=== PATIENT | female | born 1985 | race Two or more races ===

== ENCOUNTER → 2022-11-28 | Outpatient (CLI) | payer OTHER ==
[2022-11-28 14:09] LABS: HEMATOCRIT 33.1 % (36.0-47.0); HEMOGLOBIN 10.7 g/dl (12.0-15.5); MEAN CORPUSCULAR HEMOGLOBIN 30.5 pg (27.0-33.0); MEAN CORPUSCULAR HGB CONC 32.3 g/dl (32.0-36.5); MEAN CORPUSCULAR VOLUME 94.3 fl (80.0-96.0); PLATELET COUNT, AUTOMATED 289 10^3/uL (150-450); RED BLOOD COUNT 3.51 10^6/uL (4.00-5.40); WHITE BLOOD COUNT 8.4 10^3/uL (4.0-10.0)
[2022-11-28 15:08] LABS: HIV 1&2 SCREEN CENTAUR NEGATIVE (NEGATIVE)
[2022-11-28 15:18] LABS: HEPATITIS C VIRUS ABY INDEX < 0.0 INDEX (<0.8)
[2022-11-29 16:10] LABS: GC DNA AMPLIFICATION NEGATIVE (NEGATIVE)
== END ==
LOC: M PLALAB 09:21
PROVIDERS: ATTEND Obstetrics & Gynecology
DX: Z34.81 Encounter for supervision of other normal pregnancy, first trimester (principal)

== ENCOUNTER 2022-12-26 10:19 | Outpatient (CLI) | payer OTHER ==
[~2022-12-26] VITALS: Ht 162.6 cm; Wt 67.0 kg
[2022-12-26] MEDS ORDERED: PRENTAB9 PO (10:44)
[2022-12-26 10:47] VITALS: BP 104/65
[2022-12-26] MEDS ORDERED: BETAMETHASONE SOLUSPAN 6MG/ML 5ML VIAL IM STA (11:11)
[2022-12-26] MEDS ORDERED: HOME MED LIST COMPLETE! XX SCH (12:30)
== END 2022-12-26 12:23 | disposition home or self-care (01) ==
LOC: M LDO 10:19
PROVIDERS: ATTEND Obstetrics & Gynecology
DX: O26.872 Cervical shortening, second trimester (principal); O26.892 Other specified pregnancy related conditions, second trimester; R10.2 Pelvic and perineal pain; O09.522 Supervision of elderly multigravida, second trimester; Z3A.26 26 weeks gestation of pregnancy
CPT/HCPCS: 59025; 87081; G0463; J0702

== ENCOUNTER → 2022-12-26 | Outpatient (CLI) | payer OTHER ==
[~2022-12-26] MED LIST: PRENTAB9 PO
== END ==
LOC: M WHC 08:05
PROVIDERS: ATTEND Obstetrics & Gynecology
DX: Z34.92 Encounter for supervision of normal pregnancy, unspecified, second trimester (principal)

== ENCOUNTER 2022-12-27 10:55 | Outpatient (CLI) | payer OTHER ==
[~2022-12-27] VITALS: Ht 162.6 cm; Wt 66.7 kg
[2022-12-27] MEDS ORDERED: BETAMETHASONE SOLUSPAN 6MG/ML 5ML VIAL IM ONE (11:25)
== END 2022-12-27 11:30 | disposition home or self-care (01) ==
LOC: M LDO 10:55
PROVIDERS: ATTEND Advanced Practice Midwife
DX: O26.872 Cervical shortening, second trimester (principal); O09.522 Supervision of elderly multigravida, second trimester; Z3A.26 26 weeks gestation of pregnancy

== ENCOUNTER → 2023-01-16 | Outpatient (CLI) | payer OTHER | LOC: M PLALAB 13:12 | PROVIDERS: ATTEND Specialist | DX: Z34.82 Encounter for supervision of other normal pregnancy, second trimester (principal) ==

== ENCOUNTER → 2023-01-31 | Outpatient (CLI) | payer BC, OTHER | LOC: M PLALAB 10:48 | PROVIDERS: ATTEND Obstetrics & Gynecology | DX: O26.899 Other specified pregnancy related conditions, unspecified trimester (principal) ==

== ENCOUNTER 2023-02-20 10:50 | Inpatient (IN) | payer OTHER ==
[~2023-02-20] VITALS: Ht 162.6 cm; Wt 68.2 kg
[2023-02-20 11:00] VITALS: BP 116/77
[2023-02-20] MEDS ORDERED: LR 1,000 ML IV SCH (11:40)
[2023-02-20] MEDS ORDERED: LACTATED RINGER'S 1000 ML IV STA (11:40)
[2023-02-20] MEDS ORDERED: HOME MED LIST COMPLETE! XX SCH (11:50)
[2023-02-20] MEDS ORDERED: ONDANSETRON 4MG 2ML VIAL IV ONE ×2 (12:05→19:55)
[2023-02-20 12:07] LABS: HEMATOCRIT 32.3 % (36.0-47.0); HEMOGLOBIN 10.7 g/dl (12.0-15.5); MEAN CORPUSCULAR HEMOGLOBIN 30.3 pg (27.0-33.0); MEAN CORPUSCULAR HGB CONC 33.1 g/dl (32.0-36.5); MEAN CORPUSCULAR VOLUME 91.5 fl (80.0-96.0); PLATELET COUNT, AUTOMATED 220 10^3/uL (150-450); RED BLOOD COUNT 3.53 10^6/uL (4.00-5.40)
[2023-02-20 12:18] VITALS: BP 118/59
[2023-02-20 12:29] LABS: LIPASE 23 U/L (12-53)
[2023-02-20 12:33] LABS: ALBUMIN 2.7 G/DL (3.2-5.2); ALKALINE PHOSPHATASE 104 U/L (46-116); ALT/SGPT 14 U/L (7.0-40); AST/SGOT 10 U/L (<34); BILIRUBIN,TOTAL 0.4 MG/DL (0.3-1.2); BLOOD UREA NITROGEN < 5 MG/DL (9-23); CALCIUM LEVEL 7.9 MG/DL (8.5-10.1); CARBON DIOXIDE LEVEL 23 MMOL/L (20-31); CHLORIDE LEVEL 108 MMOL/L (98-107); CREATININE FOR GFR 0.48 MG/DL (0.55-1.30); GLOMERULAR FILTRATION RATE > 60.0 (>60); GLUCOSE, FASTING 90 MG/DL (60-100); POTASSIUM SERUM 3.2 MMOL/L (3.5-5.1); SODIUM LEVEL 138 MMOL/L (136-145); TOTAL PROTEIN 5.8 G/DL (5.7-8.2)
[2023-02-20 13:01] LABS: APPEARANCE, URINE HAZY (CLEAR); BACTERIA, URINE AUTO 1+ (NEGATIVE); BILIRUBIN, URINE AUTO NEGATIVE (NEGATIVE); BLOOD, URINE BLOOD NEGATIVE (NEGATIVE); COLOR, URINE YELLOW (YELLOW); GLUCOSE, URINE (UA) AUTO NEGATIVE (NEGATIVE); KETONE, URINE AUTO 2+ mg/dL (NEGATIVE); LEUKOCYTE ESTERASE, URINE AUTO 2+ (NEGATIVE); MUCUS, URINE SMALL (NEGATIVE); NITRITE, URINE AUTO NEGATIVE (NEGATIVE); PROTEIN, URINE AUTO NEGATIVE (NEGATIVE); RBC, URINE AUTO 1 /HPF (0-3); SPECIFIC GRAVITY URINE AUTO 1.016 (1.002-1.035); SQUAMOUS EPITHELIAL CELL UR AU 4 /HPF (0-6); UROBILINOGEN, URINE AUTO 0.2 mg/dL (0.0-2.0); WBC, URINE AUTO 46 /HPF (0-3)
[2023-02-20 13:55] VITALS: BP 133/72
[2023-02-20] MEDS ORDERED: ceFAZolin SOD 2 GM in IV 1 EA IV STA (13:57)
[2023-02-20] MEDS ORDERED: OXYTOCIN DRIP 30 UNITS in IV 1 EA IV PRN (14:00)
[2023-02-20] MEDS ORDERED: LIDOCAINE 1% MDV 20ML VIAL INFIL PRN (14:00)
[2023-02-20] MEDS ORDERED: NALBUPHINE HCL 10 MG/ML 1ML AMP IV ONE ×2 (14:00→20:00)
[2023-02-20] MEDS ORDERED: OMEPRAZOLE 20MG CAP PO ONE (16:05)
[2023-02-20] MEDS: LR 1,000 ML IV SCH (16:23)
[2023-02-20 17:30] VITALS: BP 115/71
[2023-02-20] MEDS ORDERED: PANTOPRAZOLE 40MG VIAL IV ONE (17:55)
[2023-02-20] MEDS ORDERED: ONDANSETRON 4MG 2ML VIAL IV PRN (20:00)
[2023-02-20 20:28] VITALS: BP 108/60
[2023-02-20] MEDS: ceFAZolin SOD 1 GM in D5W MINI-BAG PLUS 50 ML IV SCH (22:15)
[2023-02-20 23:41] VITALS: BP 96/56
[2023-02-21] VITALS (22 sets, daily range): BP systolic 83–117; BP diastolic 50–70
[2023-02-21] MEDS: ceFAZolin SOD 1 GM in D5W MINI-BAG PLUS 50 ML IV SCH ×3 (06:46→22:09)
[2023-02-21] MEDS: LR 1,000 ML IV SCH ×3 (06:46→23:06)
[2023-02-21 08:29] LABS: BASO # 0.1 10^3/uL (0.0-0.2); BASO % 0.4 % (0.0-1.0); EOS % 0.2 % (0.0-3.0); HEMATOCRIT 27.9 % (36.0-47.0); HEMOGLOBIN 9.2 g/dl (12.0-15.5); LYMPH # 1.7 10^3/uL (1.5-5.0); LYMPH % 14.5 % (24.0-44.0); MEAN CORPUSCULAR HEMOGLOBIN 30.1 pg (27.0-33.0); MEAN CORPUSCULAR VOLUME 91.2 fl (80.0-96.0); MONO # 0.8 10^3/uL (0.0-0.8); NEUTROPHILS # 8.9 10^3/uL (1.5-8.5); NEUTROPHILS % 76.3 % (36.0-66.0); PLATELET COUNT, AUTOMATED 222 10^3/uL (150-450); RED BLOOD COUNT 3.06 10^6/uL (4.00-5.40); WHITE BLOOD COUNT 11.6 10^3/uL (4.0-10.0)
[2023-02-21] MEDS ORDERED: SUCRALFATE 1 GM TAB PO ONE (09:00)
[2023-02-21 09:07] LABS: ALBUMIN 2.3 G/DL (3.2-5.2); ALKALINE PHOSPHATASE 91 U/L (46-116); ALT/SGPT < 9 U/L (7.0-40); AST/SGOT 11 U/L (<34); BILIRUBIN,TOTAL 0.5 MG/DL (0.3-1.2); BLOOD UREA NITROGEN < 5 MG/DL (9-23); CALCIUM LEVEL 7.6 MG/DL (8.5-10.1); CARBON DIOXIDE LEVEL 22 MMOL/L (20-31); CHLORIDE LEVEL 107 MMOL/L (98-107); CREATININE FOR GFR 0.44 MG/DL (0.55-1.30); GLOMERULAR FILTRATION RATE > 60.0 (>60); GLUCOSE, FASTING 92 MG/DL (60-100); POTASSIUM SERUM 3.3 MMOL/L (3.5-5.1); SODIUM LEVEL 137 MMOL/L (136-145)
[2023-02-21] MEDS ORDERED: PROMETHAZINE 25MG/ML 1ML VIAL IV ONE (11:15)
[2023-02-21] MEDS ORDERED: NALBUPHINE HCL 10 MG/ML 1ML AMP IV ONE (11:15)
[2023-02-21] MEDS: ACETAMINOPHEN 500 MG TAB PO PRN (20:18)
[2023-02-22] VITALS (15 sets, daily range): BP systolic 88–116; BP diastolic 50–66; O2SAT 96–97
[2023-02-22] MEDS: CALCIUM CARBONATE 500 MG CHEW U/D PO PRN ×2 (04:08→11:15)
[2023-02-22] MEDS: ceFAZolin SOD 1 GM in D5W MINI-BAG PLUS 50 ML IV SCH (06:10)
[2023-02-22] MEDS: ACETAMINOPHEN 500 MG TAB PO PRN ×2 (06:49→17:36)
[2023-02-22] MEDS: LR 1,000 ML IV SCH (11:13)
[2023-02-22] MEDS ORDERED: PANTOPRAZOLE 40MG VIAL IV PRN (12:55)
[2023-02-23 06:00] VITALS: BP 100/59; O2SAT 96
[2023-02-23 14:00] VITALS: BP 100/58; O2SAT 97
== END 2023-02-23 17:32 | disposition home or self-care (01) | DRG 563 ==
LOC: M LDO 10:50 → M LDI 13:46 → M OBS 02-22 14:20
PROVIDERS: ADMIT Specialist; ATTEND Specialist
DX: O60.03 Preterm labor without delivery, third trimester (principal); O26.879 Cervical shortening, unspecified trimester; Z3A.34 34 weeks gestation of pregnancy

== ENCOUNTER → 2023-10-17 | Outpatient (REF) | payer OTHER | LOC: M PLALAB 15:26 | PROVIDERS: ATTEND Advanced Practice Midwife | DX: Z34.81 Encounter for supervision of other normal pregnancy, first trimester (principal); Z53.9 Procedure and treatment not carried out, unspecified reason ==

== ENCOUNTER → 2023-12-14 | Outpatient (CLI) | payer OTHER ==
[2023-12-14 13:44] LABS: HEMATOCRIT 32.1 % (36.0-47.0); HEMOGLOBIN 10.6 g/dl (12.0-15.5); MEAN CORPUSCULAR HEMOGLOBIN 30.7 pg (27.0-33.0); PLATELET COUNT, AUTOMATED 285 10^3/uL (150-450); RED BLOOD COUNT 3.45 10^6/uL (4.00-5.40); WHITE BLOOD COUNT 6.7 10^3/uL (4.0-10.0)
[2023-12-14 14:06] LABS: HIV 1&2 SCREEN NEGATIVE (NEGATIVE)
[2023-12-14 14:14] LABS: HEPATITIS C VIRUS ABY INDEX < 0.02 INDEX (<0.8)
[2023-12-14 15:19] LABS: GC DNA AMPLIFICATION NEGATIVE (NEGATIVE)
== END ==
LOC: M PLALAB 10:45
PROVIDERS: ATTEND Advanced Practice Midwife
DX: O09.529 Supervision of elderly multigravida, unspecified trimester (principal)

== ENCOUNTER → 2023-12-18 | Outpatient (CLI) | payer OTHER | LOC: M RAD 10:45 | PROVIDERS: ATTEND Obstetrics & Gynecology | DX: Z34.92 Encounter for supervision of normal pregnancy, unspecified, second trimester (principal); Z3A.22 22 weeks gestation of pregnancy ==

== ENCOUNTER 2024-01-13 23:57 | Inpatient (IN) | payer OTHER ==
[~2024-01-13] VITALS: Ht 162.6 cm; Wt 68.0 kg
[2024-01-14] VITALS (7 sets, daily range): BP systolic 93–128; BP diastolic 52–69
[2024-01-14] MEDS ORDERED: LR 1,000 ML IV SCH (00:45)
[2024-01-14] MEDS ORDERED: DIBUCAINE 1% OINTMENT 30GM TOP PRN (00:55)
[2024-01-14] MEDS ORDERED: DOCUSATE SODIUM 100MG CAPSULE PO PRN (00:55)
[2024-01-14] MEDS ORDERED: ACETAMINOPHEN TAB 650MG DOSE (2X325MG) PO PRN (00:55)
[2024-01-14] MEDS: OXYTOCIN DRIP 30 UNITS in IV 1 EA IV SCH (00:55)
[2024-01-14] MEDS ORDERED: METHYLERGONOVINE MALEATE 0.2 MG TAB PO PRN (00:55)
[2024-01-14] MEDS ORDERED: IBUPROFEN 600MG TAB PO PRN (00:55)
[2024-01-14] MEDS: IBUPROFEN 800 MG TAB PO PRN (01:15)
[2024-01-14] MEDS: ACETAMINOPHEN 500 MG TAB PO PRN (01:15)
[2024-01-14 02:15] LABS: HEMATOCRIT 26.7 % (36.0-47.0); MEAN CORPUSCULAR HEMOGLOBIN 30.2 pg (27.0-33.0); MEAN CORPUSCULAR HGB CONC 33.7 g/dl (32.0-36.5); MEAN CORPUSCULAR VOLUME 89.6 fl (80.0-96.0); PLATELET COUNT, AUTOMATED 234 10^3/uL (150-450); RED BLOOD COUNT 2.98 10^6/uL (4.00-5.40); WHITE BLOOD COUNT 18.6 10^3/uL (4.0-10.0)
[2024-01-14 06:18] LABS: HEMOGLOBIN 8.3 g/dl (12.0-15.5); MEAN CORPUSCULAR HGB CONC 33.2 g/dl (32.0-36.5); MEAN CORPUSCULAR VOLUME 90.3 fl (80.0-96.0); PLATELET COUNT, AUTOMATED 232 10^3/uL (150-450); RED BLOOD COUNT 2.77 10^6/uL (4.00-5.40); WHITE BLOOD COUNT 15.3 10^3/uL (4.0-10.0)
[2024-01-14] MEDS: PRENATAL VITAMINS CHEWABLE TABLET PO SCH (08:35)
[2024-01-14] MEDS: RHO(D) IMMUNE GLOBULIN/MALTOSE 500MCG(2500IU)/2.2ML VIAL (WINRHO) IM SCH (09:09)
[2024-01-14] MEDS ORDERED: ACET-683 PO (09:29)
[2024-01-14] MEDS ORDERED: IBUP80TA PO (09:29)
[2024-01-16] MEDS ORDERED: MEASLES,MUMPS,RUBELLA VACCINE INJ (MMR-II) SC.IMMUN ONE (09:00)
== END 2024-01-14 10:28 | disposition home or self-care (01) | DRG 541 ==
LOC: M LDI 23:57
PROVIDERS: ADMIT Obstetrics & Gynecology; ATTEND Obstetrics & Gynecology
PROC: 10E0XZZ Delivery of Products of Conception, External Approach (ICD-10-PCS; principal; 2024-01-14)
PROC: 10D17Z9 Manual Extraction of Products of Conception, Retained, Via Natural or Artificial Opening (ICD-10-PCS; 2024-01-14)
DX: O60.13X0 Preterm labor second trimester with preterm delivery third trimester, not applicable or unspecified (principal); O09.522 Supervision of elderly multigravida, second trimester; Z37.0 Single live birth; Z3A.25 25 weeks gestation of pregnancy; O62.3 Precipitate labor; O73.0 Retained placenta without hemorrhage